=== PATIENT | male | born 1990 | race Caucasian/White ===

== ENCOUNTER 2020-01-25 19:16 | Inpatient (IN) | payer BC ==
[~2020-01-25] VITALS: Ht 175.3 cm; Wt 93.9 kg
[2020-01-25 19:58] VITALS: BP 118/87
--- NOTE | 2020-01-25 20:25 | NUR ---
TO ER BED 1
--- NOTE | 2020-01-25 20:33 | NUR ---
PT TESTED POSITIVE FOR COVID 01/17/20, HE HAD BEEN IN BED DUE TO HE ILLNESS, IN THE LAST FEW DAYS HE STARED DEVELOPING BILATERAL CALVE PAIN THAT HAS GOTTEN PROGRESSIVELY WORSE SINCE HE'S BEEN UP AND MOVING AROUND. PT BELIEVES HE HAS BLOOD CLOTS. NO SWELLING NOTED TO LEGS, SKIN WARM AND DRY, PT STATES PAIN WITH PALPATION. HX - COVID + 01/17/20 [facility]
--- NOTE | 2020-01-25 20:34 | NUR ---
PT PLACED IN GOWN, AND PUT ON BEDSIDE MONITOR
--- NOTE | 2020-01-25 21:13 | NUR ---
ULTRASOUND AT BEDSIDE
[2020-01-25 21:17] LABS: BASOPHILS % (AUTO) 0.4 % (0.0-2.0); EOSINOPHILS # (AUTO) 0.2 K/uL (0-0.4); EOSINOPHILS % (AUTO) 1.3 % (0.0-4.0); HEMOGLOBIN 14.2 g/dL (12.0-18.0); LYMPHOCYTES # (AUTO) 1.6 K/uL (2.0-11.5); LYMPHOCYTES % (AUTO) 13.6 % (20.5-51.1); MEAN CORPUSCULAR HEMOGLOBIN 29 pg (27-31); MEAN CORPUSCULAR HGB CONC 33 g/dL (33-37); MEAN CORPUSCULAR VOLUME 86.7 fL (80-94); MONOCYTES # (AUTO) 1.3 K/uL (0.8-1.0); MONOCYTES % (AUTO) 10.9 % (1.7-9.3); NEUTROPHILS # (AUTO) 8.6 K/uL (1.8-7.7); NEUTROPHILS % (AUTO) 73.8 % (42.2-75.2); PLATELET COUNT (AUTO) 251 K/uL (140-450); RED BLOOD CELL COUNT(AUTO) 4.96 MIL/uL (4.20-6.10); RED CELL DISTRIBUTION WIDTH 12.7 % (11.6-13.7); WHITE BLOOD COUNT (AUTO) 11.7 K/uL (4.8-10.8)
[2020-01-25 21:31] LABS: ALBUMIN 3.4 g/dL (3.4-5.0); ANION GAP 15.2 (8-16); CARBON DIOXIDE 24.8 mmol/L (21-32); TOTAL BILIRUBIN 0.6 mg/dL (0.0-1.0)
[2020-01-25 22:04] LABS: CKMB RELATIVE INDEX 0.5 (0.0-2.5); CREATINE KINASE MB 1.6 ng/mL (0-3.6)
[2020-01-25 22:19] LABS: PROTHROMBIN TIME 10.6 secs (10.8-13.4)
[2020-01-25] MEDS ORDERED: HYDROcodone/APAP 5/325 MG 1 TAB TAB PO ONE (22:20)
--- NOTE | 2020-01-25 22:30 | NUR ---
PAIN CONTINUES IN BIALTERAL LEGS, MEDICATED FOR PAIN ORDERED.
[2020-01-25] MEDS ORDERED: LOVENOX 1MG/KG Q12H SUBQ SCH (23:15)
--- NOTE | 2020-01-26 00:01 | NUR ---
PT SLEEPING, NO DISTRESS NOTED, RESPIRATIONS REGULAR, EVEN, AND UNLABORED. PT REMAINS ON O2 @ 2L NC
[2020-01-26] MEDS ORDERED: ONDANSETRON 4 MG/2 ML VIAL IM/IVP PRN (00:35)
[2020-01-26] MEDS ORDERED: POTASSIUM CHLORIDE 10 MEQ TABER PO PRN (00:35)
[2020-01-26] MEDS ORDERED: ACETAMINOPHEN 325 MG TAB PO PRN (00:35)
[2020-01-26] MEDS ORDERED: HYDROcodone/APAP 7.5/325 MG 1 TAB PO PRN (00:35)
[2020-01-26] MEDS ORDERED: guaiFENesin DM 200/20 MG-10 ML 10 ML UDC PO PRN (00:35)
[2020-01-26] MEDS ORDERED: DOCUSATE SODIUM 100 MG GELCAP PO PRN (00:35)
[2020-01-26] MEDS ORDERED: ZOLPIDEM 5 MG TAB PO PRN (00:35)
[2020-01-26] MEDS ORDERED: HEPARIN PER PHARMACY MC PRN (00:40)
[2020-01-26] MEDS ORDERED: ENOXAPARIN 100 MG/ML SYR SUBQ SCH (01:00)
--- NOTE | 2020-01-26 01:00 | NUR ---
KIA SWAB COLLECTED AND SENT TO LAB
--- NOTE | 2020-01-26 01:15 | NUR ---
RECEIVED TELEPHONE REPORT FROM BRITTANIE DOYLE. C/C BLE SWELLING AND PAIN. PT TESTED POSITIVE ON 01/17. LUPE PENDING. DX:BLE DVT. IV ON RAC 20G. SKIN INTACT. PT AAOX4. AMBULATORY WITH ASSIST D/T PAIN. EKG SHOWED ST 128BPM. PT ON ROOMA IR SAT WELL 98% PER RN.
[2020-01-26 01:21] LABS: CHOL/HDL RATIO 7.9 (1-4.5); FREE T4 (FREE THYROXINE) 1.49 ng/dL (0.76-1.46); MAGNESIUM 2.4 mg/dL (1.8-2.4); THYROID STIMULATING HORMONE 2.76 uIU/mL (0.34-3.74)
--- NOTE | 2020-01-26 01:30 | NUR ---
PT TRANSFERRED TO ROOM 111B PT AMBULATED FROM [facility] TO BED WITH UNSTEADY GAIT D/T PAIN. PT IS AAOX4. RESPIRATIONS ARE EQUAL AND UNLABORED ON 3L NC. PT WITH MINOR SOB WITH TALKING. LUNG SOUNDS ARE CLEAR. IV ON RAC 20G PATENT. MRSA SWAB OBTAINED. ORIENTED PT TO ROOM AND STAFF. PER PT WHEN TESTED POSITIVE FOR COVID-19 HE RESTED IN BED AND DID NOT AMBULATE MUCH. EXPLAINED TO PT COVID-19 PUTS PATIENTS AT HIGHER RISK FOR BLOOD CLOTS. PT DENIES ANY HISTORY. STATES ONLY SYMPTOM NOW IS DRY INTERMITTENT COUGH. POC DISCUSSED WITH PT. WILL START ON HEPARIN DRIP WAITING FOR PTT RESULTS. MED EDUCATION GIVEN. PT VERBALIZED UNDERSTANDING. CALL LIGHT IS WITHIN REACH. WILL CONTINUE TO MONITOR.
--- NOTE | 2020-01-26 01:47 | NUR ---
Patient will be admitted to care of DR JENKINS. Admited to TELE. Will go to room 111B. Belongings list completed. Report to JYOTSNA DOYLE.
[2020-01-26 02:00] VITALS: BP 118/81
--- NOTE | 2020-01-26 02:00 | NUR ---
RECEIVED CONSENT FOR CT ANGIO WITH CONTRAST. QUESTIONS ASKED PT DENIES ANY HOME MEDICATIONS OR ALLERGIES. ALL QUESTIONS ANSWERED. PT WITH NO FURTHER CONCERNS. ALL NEEDS MET. CALL LIGHT IS WITHIN REACH.
[2020-01-26] MEDS: NACL 0.9% 1,000 ML IV SCH ×3 (02:12→20:35)
--- NOTE | 2020-01-26 02:35 | NUR ---
HEPARIN DRIP STARTED PER ORDERS. PTT TO BE DRAWN AT 0830. ALL NEEDS MET. CALL LIGHT IS WITHIN REACH.
[2020-01-26] MEDS: hePARIN / DEXT 5% PREMIX 250 ML IV SCH ×4 (02:37→22:25)
[2020-01-26 04:00] VITALS: BP 113/62
--- NOTE | 2020-01-26 04:00 | NUR ---
VITAL SIGNS ARE WITHIN NORMAL LIMITS. ALL SAFETY MEASURES ARE IN PLACE. CALL LIGHT IS WITHIN REACH. WILL CONTINUE TO MONITOR.
--- NOTE | 2020-01-26 06:30 | NUR ---
UA COLLECTED AND SENT TO LAB. PT RESTING IN BED DENIES ANY DISCOMFORT. WILL ENDORSE TO DAY RN.
--- NOTE | 2020-01-26 07:30 | NUR ---
RECEIVED PT ON BED AAOX4. NO SOB NOTED. NO C/O PAIN AT THIS TIME. INSTRUCTED PT TO CALL FOR ASSISTANCE, CALL LIGHT WITHIN REACH. PT VERBALIZED UNDERSTANDING.
[2020-01-26 08:00] VITALS: BP 125/78
[2020-01-26 08:32] LABS: APPEARANCE,URINE CLEAR (CLEAR); BILIRUBIN,URINE NEGATIVE (NEGATIVE); BLOOD, URINE NEGATIVE (NEGATIVE); COLOR,URINE YELLOW (YELLOW); LEUKOCYTE ESTERASE ,URINE NEGATIVE (NEGATIVE); NITRITE, URINE NEGATIVE (NEGATIVE); UGLUCOSE NEGATIVE (NEGATIVE)
--- NOTE | 2020-01-26 08:52 | NUR ---
PATIENT HAS BEEN SCREENED AND CATEGORIZED HIGH NUTRITION RISK. PATIENT WILL BE SEEN WITHIN 1-2 DAYS OF ADMISSION. 01/26/20-01/27/[address]
[2020-01-26] MEDS: PANTOPRAZOLE 40 MG TABEC PO SCH (09:35)
[2020-01-26 10:00] LABS: BARBITURATE, URINE NEGATIVE ng/ml (NEG <=200); BENZODIAZEPINE, URINE NEGATIVE ng/mL (NEG <=200); CANNABINOID, URINE NEGATIVE ng/mL (NEG <=50); COCAINE, URINE NEGATIVE ng/mL (NEG <=300); OPIATE, URINE NEGATIVE ng/mL (NEG <=2000); PHENCYCLIDINE SCREEN,URINE NEGATIVE ng/mL (NEG <=25)
--- NOTE | 2020-01-26 11:37 | NUR ---
SOCIAL WORK NOTE: Patient's Orientation Person Situation Place Time Information Provided By PATIENT Comments SW WAS UNABLE TO MEET PATIENT AT BEDSIDE DUE TO MEDICAL CONDITION. SW COMPLETED ASSESSMENT WITH PATIENT TELEPHONICALLY. Documentation Billing Clerk, Realtionship and Phone Number CHRIST CABEZAS [phone] Healthcare Power of Push Connector Assembler No Does Patient Have a POLST No Identifying Problems No Social Work Triggers Is A Social Work Consult Needed No Mandate Report Filed No Explanation Of Identifying Problems PATIENT IS A 29-YEAR-OLD MALE ADMITTED FOR DEEP VEIN THROMBOSIS. PATIENT HAS PMHX OF HYPERTENSION. PATIENT REPORTED NO HISTORY OF SUBSTANCE ABUSE OR MENTAL HEALTH. Admitted From Home Pre-Admission Level Of Functioning Status Independent/Ambulatory Prior Resources/Services Used In Last 12 Months No Prior Resources Used Prior DME No Prior DME Used Dialysis Comments N/A Living Situation Apartment Lives With Spouse Other Living Situation/Comment PATIENT REPORTED LIVING WITH . Patient Had Caregiver No Home Support No Caregiver Issues Financial Issues No Known Financial Issue Referral To The Financial Counselor Needed No Factors/Needs No D/C Needs Identified Explanation And Or Other Factors Affecting/Possible DC Needs PATIENT REPORTED THAT WOULD PROVIDE TRANSPORTATION. Pt/Rep Participated In Discharge Plan Yes Patient/Family Agress With Discharge Plan Yes Discharge Plan Comments TENTATIVE DISCHARGE PLAN IS FOR PATIENT TO RETURN HOME. DC Plan Status Initiated
[2020-01-26 12:00] VITALS: BP 130/86
--- NOTE | 2020-01-26 14:45 | NUR ---
CRITICAL RESULT FROM RADIOLOGY RELAYED TO DR. JENKINS. NO NEW ORDERS.
--- NOTE | 2020-01-26 15:13 | NUR ---
01/26/20 RD INITIAL ASSESSMENT COMPLETED PLEASE REFER TO NUTRITION ASSESSMENT UNDER CARE ACTIVITY FOR ESTIMATED NUTRITIONAL NEEDS. 1. CONTINUE REGULAR DIET TOLERATED 2. RD PROVIDED NUTRITION EDUCATION ON LOWERING TRIGLYCERIDES AND CHOLESTEROL. WELL COVID-[address] TO FOLLOW-UP 3-5 DAYS, MODERATE RISK PHILLIP SHEA RD
[2020-01-26] MEDS ORDERED: ATORVASTATIN 20 MG TAB PO SCH (16:00)
[2020-01-26] MEDS: ATORVASTATIN 20 MG TAB PO SCH (18:03)
--- NOTE | 2020-01-26 19:00 | NUR ---
PT RESTING. NO SOB NOTED, NO C/O PAIN AT THIS TIME. WILL ENDORSE TO NEXT SHIFT NURSE FOR CONTINUITY OF CARE.
--- NOTE | 2020-01-26 19:30 | NUR ---
RECEIVED PT AAOX4 , NID - O2 SAT WNL . IV SITE INTACT AND PATENT , W/ ON GOING HEPARIN DRIP AT 1900 U /HR . WAITING FOR RESULT OF RPT PTT . DENIES ANY PAIN . ON O2 SAT 2 LPM /NC . ON TELE MONITOR - SR . SAFETY MEASURES IN PLACE - CALL LIGHT WITHIN REACH . PLAN OF CARE DISCUSSED AND VERBALIZE UNDERSTANDING . WILL CONT. TO MONITOR .
[2020-01-26 19:36] VITALS: BP 132/74
[2020-01-26 20:00] VITALS: BP 141/92
--- NOTE | 2020-01-26 22:04 | NUR ---
INCREASE HEPARIN TO 2100 U /HR
[2020-01-27] VITALS: BP 149/87
--- NOTE | 2020-01-27 | NUR ---
,MADE ROUNDS , NO S/SX OF ACUTE DISTRESS NOTED .
[2020-01-27 04:00] VITALS: BP_SYST 133; BP_SYST 139; BP_DIAS 70; BP_DIAS 78
--- NOTE | 2020-01-27 04:00 | NUR ---
O2 SAT WNL . NO S/SX OF ACUTE DISTRESS . CALL LIGHT WITHIN REACH
[2020-01-27 05:00] LABS: BASOPHILS # (AUTO) 0.1 K/uL (0.00-0.22); BASOPHILS % (AUTO) 0.5 % (0.0-2.0); EOSINOPHILS # (AUTO) 0.4 K/uL (0-0.4); EOSINOPHILS % (AUTO) 3.3 % (0.0-4.0); HEMATOCRIT 39.9 % (36-52); HEMOGLOBIN 13.1 g/dL (12.0-18.0); LYMPHOCYTES # (AUTO) 3.2 K/uL (2.0-11.5); LYMPHOCYTES % (AUTO) 25.5 % (20.5-51.1); MEAN CORPUSCULAR HEMOGLOBIN 29 pg (27-31); MEAN CORPUSCULAR HGB CONC 33 g/dL (33-37); MEAN CORPUSCULAR VOLUME 87.1 fL (80-94); MONOCYTES # (AUTO) 1.3 K/uL (0.8-1.0); MONOCYTES % (AUTO) 10.8 % (1.7-9.3); NEUTROPHILS # (AUTO) 7.4 K/uL (1.8-7.7); NEUTROPHILS % (AUTO) 59.9 % (42.2-75.2); PLATELET COUNT (AUTO) 330 K/uL (140-450); RED BLOOD CELL COUNT(AUTO) 4.58 MIL/uL (4.20-6.10); RED CELL DISTRIBUTION WIDTH 12.9 % (11.6-13.7); WHITE BLOOD COUNT (AUTO) 12.4 K/uL (4.8-10.8)
[2020-01-27 05:26] LABS: ANION GAP 13.3 (8-16); CARBON DIOXIDE 28.4 mmol/L (21-32); POTASSIUM 4.7 mmol/L (3.5-5.1)
--- NOTE | 2020-01-27 06:00 | NUR ---
NO COMPLAIN MADE
[2020-01-27] MEDS: NACL 0.9% 1,000 ML IV SCH ×4 (06:35→22:15)
--- NOTE | 2020-01-27 07:30 | NUR ---
ENDORSED TO AM SHIFT - PT - STABLE . THE NEXT PTT IS 1030 - ENDORSED .
--- NOTE | 2020-01-27 07:31 | NUR ---
RECEIVED ENDORSEMENT FROM GROUP EXERCISE INSTRUCTOR, AWAKE,ALERT,ORIENTEDX4, BREATHING SPONTANEOUSLY WITH O2 AT 2L/MIN VIA NC, NON LABORED NOTED. WITH ONGOING HEPARIN DRIP 2100UNITS/HOUR INFUSING AT RT HAND G22 IV CANNULA NOTED, AND ONGOING IV FLUID WITH 0.9% NS AT 100ML/HOUR INFUSING AT RT AC G 20 IV CANNULA NOTED. SAFETY MEASURES IN PLACE AND CONTINUE MONITOR.
[2020-01-27 08:00] VITALS: BP 149/90
[2020-01-27 08:08] LABS: T4 (THYROXINE) 10.2 ug/dL (4.5-12.0)
[2020-01-27] MEDS ORDERED: ATORVASTATIN 20 MG TAB PO SCH (09:00)
[2020-01-27] MEDS: PANTOPRAZOLE 40 MG TABEC PO SCH (09:00)
--- NOTE | 2020-01-27 09:08 | NUR ---
FULLY AWAKE AND ALERT, NO SIGNS OF BLEEDING NOTED. WITH INTERMITTENT NON-PRODUCTIVE COUGH NOTED
--- NOTE | 2020-01-27 11:01 | NUR ---
NOVEL MAXWELL PCR SWAB TEST DONE AND SENT TO LAB
[2020-01-27] MEDS: hePARIN / DEXT 5% PREMIX 250 ML IV SCH ×4 (11:15→20:20)
--- NOTE | 2020-01-27 11:15 | NUR ---
ABOVE HEPARIN DRIP BAG CONSUMED AND FOLLOWED UP BY NEW BAG AT SAME RATE, VERIFIED BY CHARGE NURSE.
--- NOTE | 2020-01-27 11:59 | NUR ---
PTT-32.2, HEPARIN 7500 UNITS IV BOLUS GIVEN AND ABOVE HEPARIN DRIP INCREASED RATE AND CHANGED TO 2500UNITS/HOUR, 25ML/HOUR PER PROTOCOL, VERIFIED BY SECOND RN.
[2020-01-27 12:00] VITALS: BP 135/82
--- NOTE | 2020-01-27 13:54 | NUR ---
DC PLANNIN YRS OLD MALE PATIENT WAS ADMITTED FROM HOME WITH A DX OF DVT. PT AHS A HX OF COVID POSITIVE A WEEK AGO. PT HAS NO OTHER MEDICAL HISTORY. ULTRASOUND OF LOWER EXT DONE SHOWED DVT. STARTED HEPARIN DRIP. CXR SHOWED LEFT LOWER LOBE INFILTRATE, CT CHEST SHOWED PE INVOLVING THE RIGHT MAIN PULMONARY ARTERY . RAPID COVID NEGATIVE. CONSULTED WITH PULMO. DC PLAN TO GO HOME WHEN STABLE CM TO FOLLOW.
--- NOTE | 2020-01-27 14:26 | NUR ---
AWAKE WATCHING TV, NOT IN DISTRESS NOTED.
[2020-01-27 16:00] VITALS: BP 110/62
--- NOTE | 2020-01-27 16:26 | NUR ---
DUE MEDICATION GIVEN, IV SITE DRESSING CHANGED AT RT AC.
[2020-01-27] MEDS: ATORVASTATIN 20 MG TAB PO SCH (16:49)
--- NOTE | 2020-01-27 19:10 | NUR ---
PTT- 82.4 ABOVE HEPARIN DRIP CHANGED RATE TO 2300UNITS/HOUR, VERIFIED BY SECOND RN.
--- NOTE | 2020-01-27 19:19 | NUR ---
ENDORSED TO RESTAURANT SUPERVISOR IN STABLE CONDITION FOR CONTINUITY OF CARE
--- NOTE | 2020-01-27 19:20 | NUR ---
RECEIVED BEDSIDE REPORT FROM DAY RN. PT IS AAOX4. RESPIRATIONS ARE EQUAL AND UNLABORED ON 2L NC. PT WITH MINOR SOB WHEN TALKING. LUNG SOUNDS ARE CLEAR. IV ON RAC 20G PATENT INFUSING NS AT 100ML/H . IV ON R KEN 22G INFUSING HEP DRIP AT 2300U/H. PT COVID POS ON 01/17 LUPE NEG PCR PENDING. PT WITH DRY COUGH. DX BLE DVT. PE. POC DISCUSSED WITH PT. PT VERBALIZED UNDERSTANDING. CALL LIGHT IS WITHIN REACH. WILL CONTINUE TO MONITOR.
[2020-01-27 20:00] VITALS: BP 130/68
--- NOTE | 2020-01-27 20:20 | NUR ---
VSS. PT DENIES ANY SOB. STATES BLE PAIN IS IMPROVING. EDUCATED ON USAGE OF IS PT VERBALIZED UNDERSTANDING. NEW HEP BAG HANG AND INFUSING PER ORDERS. POC DISCUSSED WITH PT. CALL LIGHT IS WITHIN REACH.
--- NOTE | 2020-01-27 22:14 | NUR ---
MADE ROUNDS. RT AT BEDSIDE DECREASED O2 TO 2L NC. CALL LIGHT IS WITHIN REACH WILL CONTINUE TO MONITOR.
[2020-01-28] VITALS: BP 113/72
--- NOTE | 2020-01-28 | NUR ---
PT RESTING COMFORTABLY IN BED. VITAL SIGNS ARE WITHIN NORMAL LIMITS. ALL SAFETY MEASURES ARE IN PLACE. CALL LIGHT IS WITHIN REACH.
--- NOTE | 2020-01-28 01:52 | NUR ---
MADE ROUNDS. PT IS SLEEPING COMFORTABLY IN BED WITH EYES CLOSED. CHEST RISE AND FALL NOTED. CALL LIGHT IS WITHIN REACH.
[2020-01-28] MEDS: hePARIN / DEXT 5% PREMIX 250 ML IV SCH ×4 (02:29→18:49)
--- NOTE | 2020-01-28 02:29 | NUR ---
PTT 83.7 PER PROTOCOL DECREASE RATE 200U NEW RATE 2100U/H. NEW PTT TO BE DRAWN AT 0830
[2020-01-28 04:00] VITALS: BP 118/75
--- NOTE | 2020-01-28 04:00 | NUR ---
VITAL SIGNS ARE WITHIN NORMAL LIMITS. ALL SAFETY MEASURES ARE IN PLACE.
--- NOTE | 2020-01-28 06:51 | NUR ---
NEW BAG OF HEPARIN IS NOW INFUSING PER PROTOCOL AT 2100U/H. PT RESTING COMFORTABLY IN BED WITH EYES CLOSED. NO S/S OF DISTRESS. PT STABLE. WILL ENDORSE TO DAY RN.
--- NOTE | 2020-01-28 07:25 | NUR ---
RECEIVED PT FROM FUR CLEANER NURSE, IV NOTED TO RAC20G AND R. HAND 22 G, NS @ 100 ML/HR, NC 2L, PT IS RESTING IN BED, TELE MONITOR ON, SAFETY AND FALL PRECAUTIONS IN PLACE, WILL CONTINUE TO MONITOR.
[2020-01-28 08:00] VITALS: BP 133/67
[2020-01-28] MEDS: PANTOPRAZOLE 40 MG TABEC PO SCH (08:45)
--- NOTE | 2020-01-28 08:47 | NUR ---
SCHEDULED MEDICATIONS ADMINISTERED, PT TOLERATED ORAL MEDICATIONS WELL, PT IS AWAKE AND SITTING UP IN BED, EDUCATION PROVIDED, PT VERBALIZED UNDERSTANDING, WILL CONTINUE TO MONITOR.
[2020-01-28 09:20] LABS: BASOPHILS % (AUTO) 0.4 % (0.0-2.0); EOSINOPHILS # (AUTO) 0.3 K/uL (0-0.4); EOSINOPHILS % (AUTO) 3.1 % (0.0-4.0); HEMATOCRIT 38.3 % (36-52); HEMOGLOBIN 12.5 g/dL (12.0-18.0); LYMPHOCYTES # (AUTO) 2.4 K/uL (2.0-11.5); LYMPHOCYTES % (AUTO) 26.2 % (20.5-51.1); MEAN CORPUSCULAR HEMOGLOBIN 29 pg (27-31); MEAN CORPUSCULAR HGB CONC 33 g/dL (33-37); MEAN CORPUSCULAR VOLUME 87.3 fL (80-94); MONOCYTES % (AUTO) 10.8 % (1.7-9.3); NEUTROPHILS # (AUTO) 5.5 K/uL (1.8-7.7); NEUTROPHILS % (AUTO) 59.5 % (42.2-75.2); PLATELET COUNT (AUTO) 339 K/uL (140-450); RED BLOOD CELL COUNT(AUTO) 4.39 MIL/uL (4.20-6.10); RED CELL DISTRIBUTION WIDTH 12.8 % (11.6-13.7); WHITE BLOOD COUNT (AUTO) 9.3 K/uL (4.8-10.8)
[2020-01-28 09:35] LABS: CARBON DIOXIDE 28.4 mmol/L (21-32); CREATININE 0.9 mg/dL (0.6-1.3); POTASSIUM 4.4 mmol/L (3.5-5.1)
--- NOTE | 2020-01-28 10:37 | NUR ---
REDUCED RATE OF HEPARIN DRIP TO 190ML/HR PER PROTOCOL , TODAY'S LAB VALUE PTT - 82.7, PT EDUCATION PROVIDED, PT VERBALIZED UNDERSTANDING, WILL CONTINUE TO MONITOR. Addendum: 01/28/20 at 1405 by Kira Diaz RN RN CORRECTION TO SMITH, DRIP IS 19 ML/HR PER PROTOCOL
[2020-01-28 12:00] VITALS: BP 125/76
--- NOTE | 2020-01-28 12:00 | NUR ---
PT IS SITTING IN BED WATCHING TV, NO SIGNS OF DISTRESS NOTED, PT DENIES PAIN, WILL CONTINUE TO MONITOR.
--- NOTE | 2020-01-28 14:16 | NUR ---
PT IS SLEEPING IN BED, NO SIGNS OF DISTRESS, WILL CONTINUE TO MONITOR.
[2020-01-28 16:00] VITALS: BP 135/78
[2020-01-28] MEDS: NACL 0.9% 1,000 ML IV SCH ×2 (16:30→22:35)
[2020-01-28] MEDS: ATORVASTATIN 20 MG TAB PO SCH (16:30)
--- NOTE | 2020-01-28 17:18 | NUR ---
PTT RESULTS NOW 56.6, NO CHANGE IN HEPARIN DRIP RATE, THIS IS FIRST RESULT WITHIN THERAPEUTIC LEVEL, WILL CONTINUE TO MONITOR.
--- NOTE | 2020-01-28 18:50 | NUR ---
NEW HEPARIN DRIP BAG ADMINISTERE @ 19 ML/HR, PT IS AWAKE WATCHING TV, WILL CONTINUE TO MONITOR.
--- NOTE | 2020-01-28 19:15 | NUR ---
ENDORSED PT TO WEIGHT ANALYST NURSE FOR CONTINUITY OF CARE.
--- NOTE | 2020-01-28 19:16 | NUR ---
RECEIVED ENDORSEMENT FROM AM SHIFT RN. PT IS NOT IN DISTRESS, O2 SAT WNL, ON 2L NC, NO SOB, AOX4, AMBULATORY, IVF INFUSING, HEPARIN DRIP INFUSING, SAFETY MEASURES IN PLACE, DROPLET ISO OBSERVED, PLAN OF CARE DISCUSSED, CALL LIGHT WITHIN REACH.
[2020-01-28 20:00] VITALS: BP 122/72
--- NOTE | 2020-01-28 20:41 | NUR ---
PT IS TALKING OVER THE PHONE, NO SOB, KEPT COMFORTABLE, CALL LIGHT WITHIN REACH.
--- NOTE | 2020-01-28 22:51 | NUR ---
PT IS USING HIS CP, NO SOB, IVF NOT FINISH YET, CALL LIGHT WITHIN REACH.
--- NOTE | 2020-01-28 23:00 | NUR ---
PTT RECEIVED 53.8. NO CHANGED IN RATE PER PROTOCOL, THIS IS THE 2ND THERAPEUTIC DOSE, THUS, THE NEXT PTT DRAW WILL BE 01/29/2020 AT 2211.
[2020-01-29] VITALS: BP 137/75
[2020-01-29 01:54] VITALS: BP 137/75
[2020-01-29] MEDS: NACL 0.9% 1,000 ML IV SCH (02:44)
--- NOTE | 2020-01-29 02:44 | NUR ---
PT IS SLEEPING, AROUSABLE TO VERBAL, IVF FINISHED, HANGED AN NEW BAG OF NS 1L AT 100 CC/HR, INFUSING WELL, CONTINUE ON HEPARIN DRIP, CALL LIGHT WITHIN REACH.
[2020-01-29 04:00] VITALS: BP 111/72
--- NOTE | 2020-01-29 05:28 | NUR ---
PT SLEEPING, CHEST RISE NOTED, NO SOB. CALL LIGHT WITHIN REACH.
--- NOTE | 2020-01-29 06:41 | NUR ---
PT IS IN STABLE CONDITION, NO SOB, NO DISTRESS, ALL NEEDS ATTENDED, KEPT COMFORTABLE, CALL LIGHT WITHIN REACH.
--- NOTE | 2020-01-29 07:10 | NUR ---
RECEIVED REPORT FROM ELECTRONIC COURT RECORDER NURSE. PT IS NOT IN DISTRESS, RESTING WITH EYES CLOSED, O2 SAT WNL, ON 2L NC, NO SOB, AOX4, AMBULATORY, IVF INFUSING, HEPARIN DRIP INFUSING WELL. PATIENT HAS NO COMPLAINTS AT THIS TIME. DROPLET PRECAUTIONS IN PLACE, BED IN LOWEST POSITION WITH BRAKES ON, CALL LIGHT WITHIN REACH, WILL CONTINUE TO MONITOR PATIENT.
[2020-01-29] MEDS: hePARIN / DEXT 5% PREMIX 250 ML IV SCH (07:37)
--- NOTE | 2020-01-29 07:37 | NUR ---
NEW BAG OF HEPARIN DRIP HUNG. PATIENT HAS NO COMPLAINTS AT THIS TIME. WILL CONTINUE TO MONITOR PATIENT.
[2020-01-29 07:52] LABS: BASOPHILS # (AUTO) 0.1 K/uL (0.00-0.22); BASOPHILS % (AUTO) 0.9 % (0.0-2.0); EOSINOPHILS % (AUTO) 0.1 % (0.0-4.0); HEMATOCRIT 38.8 % (36-52); HEMOGLOBIN 12.7 g/dL (12.0-18.0); LYMPHOCYTES % (AUTO) 18.4 % (20.5-51.1); MEAN CORPUSCULAR HEMOGLOBIN 29 pg (27-31); MEAN CORPUSCULAR HGB CONC 33 g/dL (33-37); MEAN CORPUSCULAR VOLUME 87.3 fL (80-94); MONOCYTES % (AUTO) 8.7 % (1.7-9.3); NEUTROPHILS % (AUTO) 71.9 % (42.2-75.2); PLATELET COUNT (AUTO) 368 K/uL (140-450); RED BLOOD CELL COUNT(AUTO) 4.45 MIL/uL (4.20-6.10); RED CELL DISTRIBUTION WIDTH 12.8 % (11.6-13.7); WHITE BLOOD COUNT (AUTO) 11.1 K/uL (4.8-10.8)
[2020-01-29 08:00] VITALS: BP 110/74
[2020-01-29 08:03] LABS: CARBON DIOXIDE 26.2 mmol/L (21-32); CREATININE 0.7 mg/dL (0.6-1.3); POTASSIUM 4.2 mmol/L (3.5-5.1)
[2020-01-29] MEDS: PANTOPRAZOLE 40 MG TABEC PO SCH (08:36)
--- NOTE | 2020-01-29 08:36 | NUR ---
SCHEDULED MEDICATIONS GIVEN. PATIENT TOLERATED THEM. NO COMPLAINTS AT THIS TIME. WILL CONTINUE TO MONITOR PATIENT.
[2020-01-29 12:00] VITALS: BP 137/88
--- NOTE | 2020-01-29 12:40 | NUR ---
PATIENT ASKED IF HE WAS GOING TO BE DISCHARGED TODAY, CALLED DR. DEL ANGEL. DISCHARGE ORDER IN. INFORMED PATIENT. ALSO INFORMED PATIENT PCR TEST FOR COVID IS STILL PENDING RESULTS. HE VERBALIZED UNDERSTANDING.
[2020-01-29] MEDS ORDERED: ATOR20TA40 PO (12:47)
[2020-01-29] MEDS ORDERED: DEXA6TAB1 PO (12:47)
[2020-01-29] MEDS ORDERED: APIX5TAB PO (12:47)
--- NOTE | 2020-01-29 14:45 | NUR ---
PATIENT DISCHARGE INSTRUCTION AND EDUCATION GIVEN. PATIENT SIGNED ALL PAPERWORK, VERBALIZED UNDERSTANDING ABOUT DISCHARGE PRESCRIPTIONS, FOLLOW UP WITH MD, AND COVID 19 PRECAUTIONS. IV REMOVED, IV CANNULAS INTACT, MINIMAL BLEEDING NOTED. ID BANDS CUT. PATIENT WILL GET CHANGED INTO HIS OWN CLOTHING TO BE DISCHARGED HOME.
--- NOTE | 2020-01-29 15:10 | NUR ---
PATIENT WHEELED OFF FLOOR BY [employer] TO BE DISCHARGE HOME. PATIENT TOOK ALL HIS BELONGINGS WITH HIM. PATIENT IN STABLE CONDITION.
== END 2020-01-29 15:25 | disposition home or self-care (01) | DRG 175 ==
LOC: MED 19:16 → MTU 23:59 → UNDOADMIN 01-26 00:13 → MTU 01-26 01:11
PROVIDERS: ADMIT Family Medicine; ATTEND Family Medicine
DX: I26.99 Other pulmonary embolism without acute cor pulmonale (principal); J96.01 Acute respiratory failure with hypoxia; J18.9 Pneumonia, unspecified organism; I82.431 Acute embolism and thrombosis of right popliteal vein; D68.59 Other primary thrombophilia; I82.411 Acute embolism and thrombosis of right femoral vein; E78.2 Mixed hyperlipidemia; E86.0 Dehydration; Z20.828 Contact with and (suspected) exposure to other viral communicable diseases; E66.9 Obesity, unspecified; Z68.30 Body mass index [BMI] 30.0-30.9, adult
CPT/HCPCS: 36415; 71045; 71275; 80048; 80053; 80305; 81003; 82150; 82550; 82553; 83036; 83690; 83735; 83880; 84100; 84436; 84439; 84443; 84479; 84484; 85025; 85379; 85610; 85730; 87081; 93005; 93970; 99285; J1642; J1644; J1650; Q9967; U0003